=== PATIENT | female | born 1990 | race Caucasian/White ===

== ENCOUNTER 2022-08-29 13:41 | Emergency (ER) | payer SELFPAY ==
--- NOTE | 2022-08-29 13:57 | ECG_ITS ---
[facility] Test Date: 2022-08-29 Pat Name: Belen Meier Department: Room: Gender: Female Enforcement Officer: : 1990 Requested By: Tamika Benites Order Number: [id number] Rubia MD: [place] Min M.D. Measurements Intervals [place] Rate: 107 P: 63 ID: 135 QRS: 61 QRSD: 81 T: 53 QT: 332 QTc: 445 Interpretive Statements SINUS TACHYCARDIA No previous ECG available for comparison Electronically Signed On 08-29-2022 15:23:30 CDT by Houston Min M.D. [id number]
[2022-08-29 14:02] VITALS: BP 115/69; PULSE 108; RESP 18; TEMP 36.7; O2SAT 100; BMI 27.4
--- NOTE | 2022-08-29 14:23 | XRR_ITS ---
PROCEDURE INFORMATION: Exam: XR Chest Exam date and time: 08/29/2022 2:35 PM Age: 32 years old Clinical indication: Pain; Left-sided; Additional info: Tachycardia, chest pain TECHNIQUE: Imaging protocol: Radiologic exam of the chest. Views: 1 view. COMPARISON: No relevant prior studies available. FINDINGS: Lungs: Unremarkable. No consolidation. Pleural spaces: Unremarkable. No pleural effusion. No pneumothorax. Heart/Mediastinum: Unremarkable. No cardiomegaly. Bones/joints: Unremarkable. XR/XR chest 1V portable [id number] IMPRESSION: No acute findings.
--- NOTE | 2022-08-29 14:26 | ED_ITS ---
Documented by User: JARON Kemp 08/29/22 17:10 HPI - Chest Pain General: Chief Complaint: Chest Pain Stated Complaint: rapid hr, nausea, sent from Time Seen by Provider: 08/29/22 13:51 History of Present Illness: Patient presents to the emergency department with a 2-day history of chest pain and tachycardia. Patient was originally seen at urgent care and referred to the emergency department today. She is from [facility] visiting family. Patient denies medical history. Patient has a son with [employer] but otherwise no cardiac history in the family Patient does report nausea and intermittent numbness in her hands She describes the pain in her chest as constant piercing. Only surgical history is 3 sections Associated symptoms: Reports palpitations; Deny abdominal pain, dyspnea, fever(s), nausea or vomiting Review of Systems General: Reports: 10 or more systems reviewed and unremarkable except in HPI and below Const: Denies: fever(s), chills, change in appetite, change in weight, fatigue or malaise Eyes: Denies: change in vision, eye discomfort, eye discharge or eye redness ENMT: Denies: throat pain, enlarged tonsils, odynophagia, hoarseness, ear or mastoid pain, ear discharge, change in hearing, tinnitus, nasal discharge, nasal congestion, post nasal drip or sinus pain Card: Reports: chest pain, palpitations and lightheadedness; Denies: irregular heart rhythm, edema, dyspnea on exertion, orthopnea or leg pain with exertion Resp: Denies: dyspnea, productive cough, non-productive cough, wheezing, stridor or chest congestion GI: Denies: abdominal pain, nausea, vomiting, dysphagia, diarrhea, constip ation, bloating, GI cramping or hematochezia : Reports: urinary frequency; Denies: flank pain, difficulty voiding, dysuria, urinary urgency, urinary hesitancy, oliguria or hematuria Musc: Denies: neck pain, back pain, extremity pain, joint pain, joint swelling, joint redness, joint warmth or muscle weakness Skin/Breast: Denies: rash, pruritus, erythema, photosensitivity or new lesions Neuro: Denies: headache(s), numbness in extremities, weakness in extremities, sensory changes, lack of coordination, difficulty walking, frequent falls, dizziness, confusion, Slurred speech present, difficulty communicating thoughts, seizure-like activity or involuntary movements Endo: Denies: polyuria, polydipsia or tired all the time Storm/Lymph: Denies: easy bruising or easy bleeding Physical Exam Const: COMMON NORMALS: no acute distress, patient oriented x3 and alert GENERAL APPEARANCE: cooperative ORIENTATION/CONSCIOUSNESS: Yes awake, Yes oriented to person, Yes oriented to place and Yes oriented to time HENMT: COMMON NORMALS: normocephalic and atraumatic HEAD & SCALP: normocephalic and atraumatic FACE & SINUS: normal facial exam MOUTH: Normal oral and palatal mucosa present THROAT: posterior oropharynx normal Eye: COMMON NORMALS: Equal, round and reactive pupils present, EOMs intact bilaterally, conjunctivae normal and no scleral icterus GENERAL EYE: appearance normal, both eyes and all related structures ALIGNMENT: Yes alignment normal PERIORBITAL: periorbital findings normal CONJUNCTIVA: Yes conjunctivae normal PUPIL: Yes Equal, round and reactive pupils present Neck/C-Spine: COMMON NORMALS: full ROM GENERAL: Yes normal visual inspection Lymph: LYMPHATIC: no lymphadenopathy noted Chest: COMMONS NORMALS: normal inspection of the chest Breast/axilla inspection: Yes no chest deformity, asymmetry, normal contours, no nodules, masses, tenderness Resp: COMMON NORMALS: normal respiratory effort, No retractions, No use of accessory muscles and clear to auscultation bilaterally EFFORT & INSPECTION: Yes able to speak in complete sentences and Yes symmetric chest movement AUSCULTATION: clear to auscultation bilaterally Cardio: COMMON NORMALS: regular rate, regular rhythm and Peripheral pulses 2+ throughout RATE: regular rate RHYTHM: regular rhythm PERIPHERAL PULSES: Peripheral pulses 2+ throughout GI: COMMON NORMALS: Normal to inspection, nondistended, normoactive bowel sounds present, Soft to palpation, non-tender and No hepatosplenomegaly present INSPECTION: Yes normal to inspection AUSCULTATION: Yes normoactive bowel sounds PALPATION: Yes Soft to palpation and Yes No hepatosplenomegaly present RECTAL EXAM: deferred Extremity: COMMON NORMALS: normal to inspection GENERAL: Yes normal exam except as noted Neuro: COMMON NORMALS: patient oriented x3 SENSORIUM/ORIENTATION: Yes alert, Yes oriented to person, Yes oriented to place and Yes oriented to time CRANIAL NERVES: Yes CN normal except as noted Psych: COMMON NORMALS: mental status grossly normal, Normal thought process present, cooperative, activity/motor behavior normal, denies homicidal ideation and denies suicidal ideation THOUGHT PROCESS: Normal thought process present Skin: COMMON NORMALS: no rashes or lesions noted, no wounds and turgor normal GENERAL SKIN EXAM: no rashes or lesions noted and turgor normal Course Vital Signs: Vital signs: Vital Signs Temperature 98.0 F 08/29/22 14:02 Pulse Rate 108 H 08/29/22 14:02 Respiratory Rate 18 08/29/22 14:02 Blood Pressure 115/69 08/29/22 14:02 Pulse Oximetry 100 08/29/22 14:02 Oxygen Delivery Me thod 08/29/22 14:02 MDM - Chest Pain Medical Decision Making Patient is a otherwise healthy 32-year-old female that presents to the emergency department with complaints of chest pain, tachycardia, mild shortness of breath and nausea. Onset of symptoms . Differential diagnoses include tachycardia, cardiovascular event, respiratory illness, pulmonary embolism, anxiety, febrile illness. Patient is afebrile and is mildly tachycardic at 108. Upon arrival in the emergency department we obtained an EKG. His EKG reveals sinus tachycardia at a rate of 107 beats a minute and a QTc of 395. There is no ectopy, ST elevation or abnormal T wave inversion. Repeat EKG done at 1659 is unchanged. Laboratory studies were completed and reveals a microcytic anemia there are no electrolyte disturbances stage renal liver function. Patient's hemoglobin is 8.5. Dr. Holm and I discussed risk benefit profile for transfusing at hemoglobin of 8.5. While the patient does have some mild tachycardia, intermittent tingling in her hands, and remittent mild chest discomfort/pain we will forego packed red blood cell transfusion. It is recommended that patient follow-up with her primary care on Wednesday. Attending, patient, patient's family all in agreement. All questions answered. Lab Data 08/29/22 15:17 08/29/22 15:17 Radiology Impressions Chest X-Ray 08/29/22 14:23 IMPRESSION: No acute findings. Laboratory Results WBC 7.8 10^3/uL (4.0-10.0) 08/29/22 15:17 RBC 4.40 10^6/uL (4.1-5.3) 08/29/22 15:17 Hgb 8.5 g/dL (11.5-15.3) L 08/29/22 15:17 Hct 31.7 % (37.0-47.0) L 08/29/22 15:17 MCV 72.0 fl (81-99) L 08/29/22 15:17 MCH 19.3 pg (28.0-34.0) L 08/29/22 15:17 MCHC 26.8 g/dL (30.0-36.0) L 08/29/22 15:17 RDW 18.6 % (12.1-15.1) H 08/29/22 15:17 Plt Count 473 10^3/cmm (130-400) H 08/29/22 15:17 MPV 9.7 fL (7.4-10.4) 08/29/22 15:17 Neut % (Auto) 73.3 % 08/29/22 15:17 Lymph % (Auto) 18.3 % 08/29/22 15:17 [place] % (Auto) 6.6 % 08/29/22 15:17 Eos % (Auto) 0.4 % 08/29/22 15:17 Baso % (Auto) 0.6 % 08/29/22 15:17 Neut # (Auto) 5.71 10^3/uL (1.8-7.7) 08/29/22 15:17 Lymph # (Auto) 1.4 10^3/uL (0.8-4.8) 08/29/22 15:17 [place] # (Auto) 0.5 10^3/uL (0.2-0.9) 08/29/22 15:17 Eos # (Auto) 0.0 10^3/uL (0.0-0.8) 08/29/22 15:17 Baso # (Auto) 0.1 10^3/uL (0.0-0.1) 08/29/22 15:17 Nucleated RBC % (auto) 0 % 08/29/22 15:17 Nucleated RBCs # 0.0 /100WBC 08/29/22 15:17 D-Dimer 0.57 ug/mIFEU (0-0.59) 08/29/22 15:17 Sodium 137 mmol/L (136-145) 08/29/22 15:17 Potassium 3.8 mmol/L (3.5-5.1) 08/29/22 15:17 Chloride 102 mmol/L (98-107) 08/29/22 15:17 Carbon Dioxide 23 mmol/L (22-29) 08/29/22 15:17 Anion Gap 15.8 (5-19) 08/29/22 15:17 BUN 8 mg/dL (6-20) 08/29/22 15:17 Creatinine 0.7 mg/dL (0.5-0.9) 08/29/22 15:17 GFR Calculation 97.0 mL/min (90-130) 08/29/22 15:17 Glucose 94 mg/dL (65-115) 08/29/22 15:17 Calculated Osmolality 282 mOsm/kg (285-295) L 08/29/22 15:17 Calcium 8.8 mg/dL (8.5-10.5) 08/29/22 15:17 Total Bilirubin 0.3 mg/dL (0.15-1.2) 08/29/22 15:17 AST 19 U/L (0-32) 08/29/22 15:17 ALT 17 U/L (0-33) 08/29/22 15:17 Alkaline Phosphatase 62 U/L (35-105) 08/29/22 15:17 Troponin T Baseline 6 ng/L (0-10) 08/29/22 15:17 NT-Pro-B Natriuret Pep 47 pg/mL (0-125) 08/29/22 15:17 Total Protein 7.6 g/dL (6.6-8.7) 08/29/22 15:17 Albumin 4.4 g/dL (3.5-5.2) 08/29/22 15:17 Globulin 3.2 g/dL (1.3-4.6) 08/29/22 15:17 Urine Color Straw (Yellow) 08/29/22 15:33 Urine Appearance Clear (CLEAR) 08/29/22 15:33 Urine pH 6.5 (5-7) 08/29/22 15:33 Ur Specific [place] 1.010 (1.005-1.030) 08/29/22 15:33 Urine Protein Neg (Negative) 08/29/22 15:33 Urine Glucose (UA) Norm (Normal) 08/29/22 15:33 Urine Ketones Negative (Negative) 08/29/22 15:33 Urine Blood Neg (Negative) 08/29/22 15:33 Urine Nitrate Negative (Negative) 08/29/22 15:33 Urine Bilirubin Neg (Negative) 08/29/22 15:33 Urine Urobilinogen Norm mg/dL (Negative) 08/29/22 15:33 Ur Leukocyte Esterase Negative (Negative) 08/29/22 15:33 Discharge Plan Discharge Patient Disposition: Home Clinical Impression: Sinus tachycardia, Microcytic anemia Condition: Stable Prescriptions: No Action methadone 10 mg/5 mL solution 15 mg PO Q4H cetirizine [Zyrtec] 10 mg tablet 20 mg PO DAILY PRN (Reason: Allergic Symptoms) Benadryl 25 mg Capsule 50 mg PO QPM PRN (Reason: Allergy Symptoms) Discharge Orders: Discharge ED (Routine); Ordered 08/29/22 Ordered By: Tamika Osman Discharge Diet: Advance as tolerated Discharge Activity: Resume usual activity Patient Instructions: Anemia (ED), Opioid Safety, Pain Management Activity Restrictions/Additional Instructions: As discussed you have microcytic anemia. At this time transfusion is not advisable. You need to follow-up with your primary care doctor for further evaluation and testing. You are to return to the emergency department for new concerning or worsening symptoms Coding Level of Care Code ED Audio/Video Technician for Chg Fwd Documented by User: Marquis Holm DO 08/29/22 17:30 HPI - Chest Pain General: Chief Complaint: Chest Pain Stated Complaint: rapid hr, nausea, sent from Time Seen by Provider: 08/29/22 13:51 Course Vital Signs: Vital signs: Vital Signs Temperature 98.0 F 08/29/22 14:02 Pulse Rate 108 H 08/29/22 14:02 Respiratory Rate 18 08/29/22 14:02 Blood Pressure 115/69 08/29/22 14:02 Pulse Oximetry 100 08/29/22 14:02 Oxygen Delivery Me thod 08/29/22 14:02 [facility] - Chest Pain Medical Decision Making Patient is a otherwise healthy 32-year-old female that presents to the emergency department with complaints of chest pain, tachycardia, mild shortness of breath and nausea. Onset of symptoms . Differential diagnoses include tachycardia, cardiovascular event, respiratory illness, pulmonary embolism, anxiety, febrile illness. Patient is afebrile and is mildly tachycardic at 108. Upon arrival in the emergency department we obtained an EKG. His EKG reveals sinus tachycardia at a rate of 107 beats a minute and a QTc of 395. There is no ectopy, ST elevation or abnormal T wave inversion. Repeat EKG done at 1659 is unchanged. Laboratory studies were completed and reveals a microcytic anemia there are no electrolyte disturbances stage renal liver function. Patient's hemoglobin is 8.5. Dr. Holm and I discussed risk benefit profile for transfusing at hemoglobin of 8.5. While the patient does have some mild tachycardia, intermittent tingling in her hands, and remittent mild chest disc omfort/pain we will forego packed red blood cell transfusion. It is recommended that patient follow-up with her primary care on Wednesday. Attending, patient, patient's family all in agreement. All questions answered. Chart reviewed and patient discussed with midlevel. Agree with assessment and plan. Medical Records I reviewed the patient's medical records. Lab Data I reviewed the patient's lab results. 08/29/22 15:17 08/29/22 15:17 Radiology Impressions Chest X-Ray 08/29/22 14:23 IMPRESSION: No acute findings. Laboratory Results WBC 7.8 10^3/uL (4.0-10.0) 08/29/22 15:17 RBC 4.40 10^6/uL (4.1-5.3) 08/29/22 15:17 Hgb 8.5 g/dL (11.5-15.3) L 08/29/22 15:17 Hct 31.7 % (37.0-47.0) L 08/29/22 15:17 MCV 72.0 fl (81-99) L 08/29/22 15:17 MCH 19.3 pg (28.0-34.0) L 08/29/22 15:17 MCHC 26.8 g/dL (30.0-36.0) L 08/29/22 15:17 RDW 18.6 % (12.1-15.1) H 08/29/22 15:17 Plt Count 473 10^3/cmm (130-400) H 08/29/22 15:17 MPV 9.7 fL (7.4-10.4) 08/29/22 15:17 Neut % (Auto) 73.3 % 08/29/22 15:17 Lymph % (Auto) 18.3 % 08/29/22 15:17 [place] % (Auto) 6.6 % 08/29/22 15:17 Eos % (Auto) 0.4 % 08/29/22 15:17 Baso % (Auto) 0.6 % 08/29/22 15:17 Neut # (Auto) 5.71 10^3/uL (1.8-7.7) 08/29/22 15:17 Lymph # (Auto) 1.4 10^3/uL (0.8-4.8) 08/29/22 15:17 [place] # (Auto) 0.5 10^3/uL (0.2-0.9) 08/29/22 15:17 Eos # (Auto) 0.0 10^3/uL (0.0-0.8) 08/29/22 15:17 Baso # (Auto) 0.1 10^3/uL (0.0-0.1) 08/29/22 15:17 Nucleated RBC % (auto) 0 % 08/29/22 15:17 Nucleated RBCs # 0.0 /100WBC 08/29/22 15:17 D-Dimer 0.57 ug/mIFEU (0-0.59) 08/29/22 15:17 Sodium 137 mmol/L (136-145) 08/29/22 15:17 Potassium 3.8 mmol/L (3.5-5.1) 08/29/22 15:17 Chloride 102 mmol/L (98-107) 08/29/22 15:17 Carbon Dioxide 23 mmol/L (22-29) 08/29/22 15:17 Anion Gap 15.8 (5-19) 08/29/22 15:17 BUN 8 mg/dL (6-20) 08/29/22 15:17 Creatinine 0.7 mg/dL (0.5-0.9) 08/29/22 15:17 GFR Calculation 97.0 mL/min (90-130) 08/29/22 15:17 Glucose 94 mg/dL (65-115) 08/29/22 15:17 Calculated Osmolality 282 mOsm/kg (285-295) L 08/29/22 15:17 Calcium 8.8 mg/dL (8.5-10.5) 08/29/22 15:17 Total Bilirubin 0.3 mg/dL (0.15-1.2) 08/29/22 15:17 AST 19 U/L (0-32) 08/29/22 15:17 ALT 17 U/L (0-33) 08/29/22 15:17 Alkaline Phosphatase 62 U/L (35-105) 08/29/22 15:17 Troponin T Baseline 6 ng/L (0-10) 08/29/22 15:17 NT-Pro-B Natriuret Pep 47 pg/mL (0-125) 08/29/22 15:17 Total Protein 7.6 g/dL (6.6-8.7) 08/29/22 15:17 Albumin 4.4 g/dL (3.5-5.2) 08/29/22 15:17 Globulin 3.2 g/dL (1.3-4.6) 08/29/22 15:17 Urine Color Straw (Yellow) 08/29/22 15:33 Urine Appearance Clear (CLEAR) 08/29/22 15:33 Urine pH 6.5 (5-7) 08/29/22 15:33 Ur Specific [place] 1.010 (1.005-1.030) 08/29/22 15:33 Urine Protein Neg (Negative) 08/29/22 15:33 Urine Glucose (UA) Norm (Normal) 08/29/22 15:33 Urine Ketones Negative (Negative) 08/29/22 15:33 Urine Blood Neg (Negative) 08/29/22 15:33 Urine Nitrate Negative (Negative) 08/29/22 15:33 Urine Bilirubin Neg (Negative) 08/29/22 15:33 Urine Urobilinogen Norm mg/dL (Negative) 08/29/22 15:33 Ur Leukocyte Esterase Negative (Negative) 08/29/22 15:33 Discharge Plan Discharge Patient Disposition: Home Clinical Impression: Sinus tachycardia, Microcytic anemia Condition: Stable Prescriptions: No Action methadone 10 mg/5 mL solution 15 mg PO Q4H cetirizine [Zyrtec] 10 mg tablet 20 mg PO DAILY PRN (Reason: Allergic Symptoms) Benadryl 25 mg Capsule 50 mg PO QPM PRN (Reason: Allergy Symptoms) Discharge Orders: Discharge ED (Routine); Ordered 08/29/22 Ordered By: Tamika Osman Discharge Diet: Advance as tolerated Discharge Activity: Resume usual activity Patient Instructions: Anemia (ED), Opioid Safety, Pain Management Activity Restrictions/Additional Instructions: As discussed you have microcytic anemia. At this time transfusion is not advisable. You need to follow-up with your primary care doctor for further evaluation and testing. You are to return to the emergency department for new concerning or worsening symptoms Coding Level of Care Code ED Audio/Video Technician for Drake Ta
[2022-08-29] MEDS: sodium chloride 0.9% 1,000 ML 999 ML IV (15:21)
[2022-08-29] MEDS: ondansetron 2 mg/ML SDV 2 mL 4 MG IVP (15:21)
[2022-08-29 15:30] LABS: Basophils # 0.1 10^3/uL (0.0-0.1); Basophils % 0.6 %; Eosinophils % 0.4 %; Hematocrit 31.7 % (37.0-47.0); Hemoglobin 8.5 g/dL (11.5-15.3); Lymphocytes # 1.4 10^3/uL (0.8-4.8); Lymphocytes % 18.3 %; Mean Corpuscular HGB Conc 26.8 g/dL (30.0-36.0); Mean Corpuscular Hemoglobin 19.3 pg (28.0-34.0); Mean Platelet Volume 9.7 fL (7.4-10.4); Monocytes # 0.5 10^3/uL (0.2-0.9); Monocytes % 6.6 %; Neutrophils # 5.71 10^3/uL (1.8-7.7); Neutrophils % 73.3 %; Nucleated Red Blood Cells % 0 %; Platelet Count 473 10^3/cmm (130-400); Red Cell Distribution Width 18.6 % (12.1-15.1); White Blood Count 7.8 10^3/uL (4.0-10.0)
[2022-08-29 15:45] LABS: Add Urine Microscopic? NO; Charge for UA Resulting for Rev
[2022-08-29 16:02] LABS: D Dimer 0.57 ug/mIFEU (0-0.59)
[2022-08-29 16:13] LABS: Bilirubin Urine Neg (Negative); Blood Urine Neg (Negative); Glucose Urine UA Norm (Normal); Ketones Urine Negative (Negative); Leukocyte Esterase Urine Negative (Negative); Nitrate Urine Negative (Negative); Protein Urine Neg (Negative); Urine Appearance Clear (CLEAR); Urine Color Straw (Yellow); Urobilinogen Urine Norm (Negative); pH Urine 6.5 (5-7)
[2022-08-29 16:18] LABS: Troponin(5th) Baseline 6 ng/L (0-10)
[2022-08-29 16:23] LABS: Alanine Aminotransferase 17 U/L (0-33); Albumin Level 4.4 g/dL (3.5-5.2); Alkaline Phosphatase 62 U/L (35-105); Anion Gap 15.8 (5-19); Aspartate Amino Transferase 19 U/L (0-32); Blood Urea Nitrogen 8 mg/dL (6-20); Calcium 8.8 mg/dL (8.5-10.5); Carbon Dioxide 23 mmol/L (22-29); Chloride 102 mmol/L (98-107); Creatinine Clr Calc Pharmacy 104.3234; Globulin 3.2 g/dL (1.3-4.6); Glucose 94 mg/dL (65-115); NT Pro B Type Natriuretic Pept 47 pg/mL (0-125); Osmolality Calculated 282 mOsm/kg (285-295); Potassium 3.8 mmol/L (3.5-5.1); Sodium 137 mmol/L (136-145); Total Bilirubin 0.3 mg/dL (0.15-1.2); Total Protein 7.6 g/dL (6.6-8.7)
--- NOTE | 2022-08-29 16:23 | ECG_ITS ---
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 Measurements Intervals [place] Rate: 84 P: 38 MN: 139 QRS: 57 QRSD: 78 T: 34 QT: 372 QTc: 441 Interpretive Statements SINUS RHYTHM Compared to ECG 08/29/2022 13:57:36 Sinus tachycardia no longer present Electronically Signed On 08-30-2022 22:37:36 CDT by [place] Min M.D. [id number]
--- NOTE | 2022-09-09 12:52 | DCPLANNER ---
manager heavy equipment called patient due to no primary care physician - no answer at this time
== END 2022-08-29 17:19 | disposition home or self-care (01) ==
PROVIDERS: Emergency Provider Nurse Practitioner
DX: R00.0 Tachycardia, unspecified (principal); D50.9 Iron deficiency anemia, unspecified
CPT/HCPCS: 71045; 80053; 81003; 83880; 84484; 85025; 85378; 93005; 96374; 99285; J2405; J7030